=== PATIENT | female | born 1950 | race Native Hawaiian/Other Pacific Islander ===

== ENCOUNTER 2018-10-26 10:38 | Outpatient (CLI) | payer OTHER ==
[2018-10-26 10:50] LABS: PLATELET COUNT 495 K/uL (152-353)
[2018-10-26 11:03] LABS: POTASSIUM 4.2 mmol/L (3.6-5.2)
== END 2018-10-26 19:47 | disposition home or self-care (01) ==
LOC: LAB 10:38
PROVIDERS: Internal Medicine Critical Care Medicine
DX: K75.0 Abscess of liver (principal); Z79.2 Long term (current) use of antibiotics; N39.0 Urinary tract infection, site not specified
CPT/HCPCS: 80053; 85027

== ENCOUNTER 2018-11-02 12:48 | Outpatient (CLI) | payer OTHER ==
[2018-11-02 14:19] LABS: PLATELET COUNT 376 K/uL (152-353)
[2018-11-02 15:00] LABS: POTASSIUM 4.2 mmol/L (3.6-5.2)
== END 2018-11-02 22:41 | disposition home or self-care (01) ==
LOC: LAB 12:48
PROVIDERS: Internal Medicine Critical Care Medicine
DX: K75.0 Abscess of liver (principal); Z79.2 Long term (current) use of antibiotics
CPT/HCPCS: 80053; 85027

== ENCOUNTER 2018-11-09 13:08 | Outpatient (CLI) | payer OTHER ==
[2018-11-09 13:27] LABS: PLATELET COUNT 270 K/uL (152-353)
== END 2018-11-09 20:37 | disposition home or self-care (01) ==
LOC: LAB 13:08
PROVIDERS: Internal Medicine Critical Care Medicine
DX: K75.0 Abscess of liver (principal); Z79.2 Long term (current) use of antibiotics
CPT/HCPCS: 80053; 85027

== ENCOUNTER 2018-11-16 13:08 | Outpatient (CLI) | payer OTHER ==
[2018-11-16 13:49] LABS: PLATELET COUNT 266 K/uL (152-353)
== END 2018-11-16 20:32 | disposition home or self-care (01) ==
LOC: LAB 13:08
PROVIDERS: Internal Medicine Critical Care Medicine
DX: K75.0 Abscess of liver (principal); Z79.2 Long term (current) use of antibiotics
CPT/HCPCS: 80053; 85027